=== PATIENT | female | born 1990 | race Caucasian/White ===

== ENCOUNTER → 2023-05-18 12:35 | Outpatient (BNVA) | payer MEDICAID, SELFPAY | PROVIDERS: Family Provider Specialist; PCP Nurse Practitioner Family; Referring Provider Nurse Practitioner Primary Care; Visit Provider Specialist | DX: G56.02 Carpal tunnel syndrome, left upper limb (principal) | CPT/HCPCS: 95910 ==

== ENCOUNTER 2025-02-02 17:40 | Emergency (ER) | payer SELFPAY ==
[2025-02-02 17:49] VITALS: BP 159/85; PULSE 74; RESP 16; TEMP 36.9; O2SAT 99; BMI 40.2
[2025-02-02 18:12] VITALS: PULSE 85; RESP 16; O2SAT 98
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
[2025-02-02 21:27] VITALS: BP 152/77; PULSE 68; O2SAT 100
== END 2025-02-02 21:27 | disposition home or self-care (01) ==
PROVIDERS: Emergency Provider Registered Nurse
DX: S09.93XA Unspecified injury of face, initial encounter (principal); Y04.8XXA Assault by other bodily force, initial encounter
CPT/HCPCS: 70450; 70486; 72125; 99284

== ENCOUNTER 2025-06-12 23:46 | Emergency (ER) | payer MEDICAID, SELFPAY ==
--- OUTSIDE RECORDS SUMMARY | 2025-06-12 23:50 | XMS_ITS | Encounter Summary ---
Author Organization [facility] Address [address] [place] [address] Care Team Providers Care Product Safety Test Engineer Name Role Phone Osiel Gonzalez Primary Care Provider [phone]- [phone] Encounter Details Date Type Department Care Team (Latest Contact Info) Description [facility] [address] [address] Acute pharyngitis (Primary Dx); Unspecified suppurative otitis media Social History Tobacco Use Types Packs/Day Years Used Date Smoking Tobacco: Never Assessed Comments Unknown Sex and Gender Information Value Date Recorded Sex Assigned at Not on file 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 Gender Identity Not on file Sexual Orientation Not on file documented as of this encounter Plan of Treatment Not on file documented as of this encounter Visit Diagnoses Diagnosis Acute pharyngitis- Primary Unspecified suppurative otitis media documented in this encounter Additional Health Concerns Infection Onset Date Last Indicated Resolved Time MRSA Comment:Thumb 05/25/13 05/27/2013 05/27/2013 documented as of this encounter Care Teams Product Safety Test Engineer Relationship Specialty Start Date End Date Osiel Gonzalez FNP PCP - General NURSE PRACTITIONER 12/28/16 documented as of this encounter
--- OUTSIDE RECORDS SUMMARY | 2025-06-12 23:50 | XMS_ITS | Clinical Summary ---
Author Organization [facility] Address [address] [place] [address] Care Team Providers Care Contour Path Tape Mill Operator Name Role Phone Osiel Gonzalez METAL BONDING ASSEMBLER Primary Care Provider [phone]- [phone] Allergies Active Allergy Reactions Criticality Noted Date Comments Ciprofloxacin Rash Low 10/18/2013 Medications gabapentin (NEURONTIN) 300 mg Oral capsule Take 300 mg by mouth 3 times daily. Active naproxen (NAPROSYN) 500 mg tablet Take 1 Tablet (500 mg) by mouth 2 times daily as needed for Pain, Moderate. 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 Gender Identity Not on file Sexual Orientation Not on file Occupation Industry Job Start Date Job End Date Not on file Not on file Not on file Not on file Last Filed Vital Signs Vital Sign Reading Time Taken Comments Blood Pressure 120/74 04/01/2020 3:56 PM CDT Pulse 90 12/08/2019 6:45 AM CDT Temperature 36.7 C (98 F) 04/01/2020 1:21 PM CDT Respiratory Rate 17 04/01/2020 3:56 PM CDT Oxygen Saturation 98% 04/01/2020 3:56 PM CDT Inhaled Oxygen Concentration - - Weight 77.1 kg (170 lb) 04/01/2020 1:21 PM CDT Height 157.5 cm (5' 2 ) 04/01/2020 1:21 PM CDT Body Mass Index 31.09 04/01/2020 1:21 PM CDT Plan of Treatment Health Maintenance Due Date Last Done Comments DTAP/TDAP/TD VACCINES (1 - Tdap) 2008 HEPATITIS B VACCINES (1 of 3 - 19+ 3-dose series) 06/05 HPV/Cotest (21-29) 2010 HPV VACCINES (1 - 3-dose SCDM series) 2016 CERVICAL CANCER SCREENING 2019 HPV/Cotest (30-65) 2019 PAP SMEAR 2019 INFLUENZA VACCINE (#1) 2025 Additional Health Concerns Infection Onset Date Last Indicated MRSA Comment:Thumb 05/25/13 05/27/2013 05/27/2013 Insurance MEDICAID [place] Care Teams Contour Path Tape Mill Operator Relationship Specialty Start Date End Date Osiel Gonzalez FNP PCP - General NURSE PRACTITIONER 12/28/16
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
--- OUTSIDE RECORDS SUMMARY | 2025-06-12 23:50 | XMS_ITS | Encounter Summary ---
Author Organization [facility] Address [address] [place] [address] Care Team Providers Care Insole Taper Name Role Phone Osiel Gonzalez Primary Care Provider [phone] Reason for Referral * Outpatient Services (Routine) - Closed Specialty Diagnoses / Procedures Referred By Anahi del rio Referred To Contact Diagnoses Shortness of breath Procedures ECHO COMPLETE Osiel Gonzalez FNP Phone: tel: fax: [facility] Pre-Registration [place] CALL TO MAKE APPOINTMENT ONLY [address] [place] [address] Phone: tel: fax: Referral ID Status Reason Start Date Expiration Date V isits Requested Visits Authorized [id number] Closed F [facility] TO SCHEDULE (SGF) 11/25/2016 12/26/2017 1 1 Encounter Details Date Type Department Care Team (Latest Contact Info) Description 11/25/2016 Ancillary Orders [facility] Pre-Registration [place] CALL TO MAKE APPOINTMENT ONLY [address] [place] [address] Osiel Gonzalez FNP [address] [place] [address] Shortness of breath Social History Tobacco Use Types Packs/Day Years Used Date Smoking Tobacco: Never Alcohol Use Standard Drinks/Week Comments No 0 (1 standard drink = 0.6 oz pur e alcohol) Comments No Sex and Gender Information Value Date Recorded Sex Assigned at Not on file Legal Sex Female 2:42 AM [employer] Gender Identity Not on file Sexual Orientation Not on file Occupation Industry Job Start Date Job End Date Not on file Not on file Not on file Not on file documented as of this encounter Plan of Treatment Not on file documented as of this encounter Results * ECHO COMPLETE (01/04/2017 8:28 AM CDT) EJECTION FRACTION 64 INTERFACE SYSTEM 01/04/2017 7:36 AM CDT Narrative INTERFACE SYSTEM - 01/04/2017 8:58 AM CDT [facility] [address] Transthoracic Echocardiography Patient: Harjit Study ECHO Kely Stockton ID: COMPLETE Gender: F : 1990 Age: 26 Room: Study 01/04/2017 Pt Outpatient Date: Status: Study 07:36 AM CSN #: [id number] Time: Ordering:Osiel Gonzalez Interpreting:Vin Umana MD Farm Supervisor: Christiana Fonseca [facility] Indications and History: Shortness of breath [R06.02 (ICD-10-CM)]. Risk factors: Current tobacco use. Summary and Conclusion: - Left ventricle: The cavity size was normal. Wall thickness was normal. Systolic function was normal. The left ventricular ejection fraction was 64%, by biplane method of disks. The visually estimated ejection fraction was in the range of 60% to 65%. No diagnostic regional wall motion abnormality identified. Left ventricular diastolic function parameters were normal. - Right ventricle: The cavity size was normal. Systolic function was normal. Systolic pressure was within the normal range. Impressions: Normal echo with Dopplers. Procedure information: No prior study was available for comparison. Study status: Routine. Procedure: Transthoracic echocardiography. Image quality was fair. Scanning was performed from the parasternal, apical, subcostal, and suprasternal notch acoustic windows. Study components: M-mode, 2D, complete spectral Doppler, and color Doppler. Height: Height: 157.5cm. Height: 62in. Weight: Weight: 90.7kg. Weight: 200lb. Body mass index: BMI: 36.6kg/m\S\2. Body surface area: BSA: 2.04m\S\2. Patient status: Outpatient. Study date: Study date: January 04, 2017. Location: Echo laboratory. Cardiac Anatomy: LEFT VENTRICLE: The cavity size was normal. Wall thickness was normal. Systolic function was normal. The left ventricular ejection fraction was 64%, by biplane method of disks. The visually estimated ejection fraction was in the range of 60% to 65%. No diagnostic regional wall motion abnormality identified. Left ventricular diastolic function parameters were normal. RIGHT VENTRICLE: The cavity size was normal. Systolic function was normal. Systolic pressure was within the normal range. LEFT ATRIUM: The atrium was normal in size. RIGHT ATRIUM: The atrium was normal in size. ATRIAL SEPTUM: No obvious PFO or ASD identified by 2D imaging and color Doppler. AORTIC VALVE: Trileaflet; normal thickness leaflets. Mobility was not restricted. Doppler: There was no stenosis. No significant regurgitation. Peak velocity ratio of LVOT to aortic valve: 0.84. Peak gradient: 7mm Hg (S). MITRAL VALVE: Structurally normal valve. Mobility was not restricted. No echocardiographic evidence for prolapse. Doppler: There was no evidence for stenosis. No significant regurgitation. Valve area: 3.87cm\S\2. Indexed valve area: 1.9cm\S\2/m\S\2. Valve area by pressure half-time: 3.87cm\S\2. Indexed valve area by pressure half-time: 1.9cm\S\2/m\S\2. Peak gradient: 4mm Hg (D). TRICUSPID VALVE: Structurally normal valve. Mobility was not restricted. Doppler: There was no evidence for stenosis. No significant regurgitation. PULMONIC VALVE: Not well visualized. The valve appears to be grossly normal. Doppler: There was no evidence for stenosis. No significant regurgitation. PERICARDIUM: There was no pericardial effusion. AORTA: Aortic root: The aortic root was normal in size. Aortic arch: The aortic arch was normal in size. PULMONARY ARTERY: Systolic pressure could not be accurately estimated. SYSTEMIC VEINS: Inferior vena cava: The vessel was normal in size. INTRACARDIAC MASS THROMBUS: No apparent intracavitary masses or thrombi detected. 2D measurements Adult Normal Range Left ventricle FS, chord, PLAX 39 % >29 LVID ED, max, PLAX 46.25 mm 36-54 LVID ES, max, PLAX 28.31 mm 23-40 FS, max, PLAX 39 % >29 LVPW, ED, PLAX 8.9 mm IVS/LVPW ratio, ED, PLAX 0.66 <1.3 Vol ED, MOD1 85.1 ml Vol ES, MOD1 33 ml Stroke vol, MOD1 52.1 ml Vol index, ED, MOD1 42 ml/m\S\2 Vol index, ES, MOD1 16 ml/m\S\2 Stroke index, MOD1 25.6 ml/m\S\2 Vol ED, MOD2 96.2 ml 55-101 Vol ES, MOD2 35.8 ml EF, MOD2 63.65 % Stroke vol, MOD2 63.9 ml Vol index, ED, MOD2 47 ml/m\S\2 Vol index, ES, MOD2 18 ml/m\S\2 Stroke index, MOD2 31.4 ml/m\S\2 Ventricular septum IVS, ED, PLAX 5.9 mm Aorta Root diam, ED 25.75 mm AAo AP diam, S 25.76 mm Left atrium AP dim 28.79 mm AP dim index 1.41 cm/m\S\2 <2.2 AP dim ES, PLAX 28.79 mm 23-38 SI dim, A4C 44.32 mm 29-53 Vol, S 20.4 ml Vol index, S 10 ml/m\S\2 Right atrium SI dim, ES, A4C 38.13 mm 34-49 Right ventricle RVID ED, PLAX 23.11 mm 19-38 Doppler measurements Adult Normal Range Left ventricle IVRT 99 ms 60-100 Ea, lat ren, tiss DP 16 cm/s E/Ea, lat ren, tiss DP 5.96 Ea, med ren, tiss DP 16 cm/s E/Ea, med ren, tiss DP 6.1 LVOT Peak zach, S 111.83 cm/s Peak gradient, S 5 mm Hg Aortic valve Peak zach, S 133.22 cm/s Peak gradient, S 7 mm Hg Peak zach ratio, LVOT/AV 0.84 Mitral valve Peak E zach 95.33 cm/s Peak A zach 52.56 cm/s Deceleration time 196 ms 150-230 Pressure half-time 57 ms Peak gradient, D 4 mm Hg Peak E/A ratio 1.81 Area 3.87 cm\S\2 Area index 1.9 cm\S\2/m\S\2 Area (PHT) 3.87 cm\S\2 Area index (PHT) 1.9 cm\S\2/m\S\2 Legend: Mean values are shown as u=mean value. Asterisk (*) hobbs values outside specified normal range. [facility] are accredited with the Intersocietal Accreditation Commission - Echocardiography. Prepared and Electronically Authenticated Vin Umana MD Confirmed 01/04/2017 08:58 Procedure Note Vin Umana MD - 01/04/2017 [facility] [address] [facility] [address] [place] [address] Transthoracic Echocardiography Patient: Harjit Study ECHO Kely I ID: COMPLETE Gender: F : 1990 Age: 26 Room: Study 01/04/2017 Pt Outpatient Date: Status: Study 07:36 AM [facility] #: [id number] Time: Ordering:Osiel Gonzalez Interpreting:Vin Umana MD Farm Supervisor: Christiana Fonseca [facility] Indications and History: Shortness of breath [R06.02 (ICD-10-CM)]. Risk factors: Current tobacco use. Summary and Conclusion: - Left ventricle: The cavity size was normal. Wall thickness was normal. Systolic function was normal. The left ventricular ejection fraction was 64%, by biplane method of disks. The visually estimated ejection fraction was in the range of 60% to 65%. No diagnostic regional wall motion abnormality identified. Left ventricular diastolic function parameters were normal. - Right ventricle: The cavity size was normal. Systolic function was normal. Systolic pressure was within the normal range. Impressions: Normal echo with Dopplers. Procedure information: No prior study was available for comparison. Study status: Routine. Procedure: Transthoracic echocardiography. Image quality was fair. Scanning was performed from the parasternal, apical, subcostal, and suprasternal notch acoustic windows. Study components: M-mode, 2D, complete spectral Doppler, and color Doppler. Height: Height: 157.5cm. Height: 62in. Weight: Weight: 90.7kg. Weight: 200lb. Body mass index: BMI: 36.6kg/m\S\2. Body surface area: BSA: 2.04m\S\2. Patient status: Outpatient. Study date: Study date: January 04, 2017. Location: Echo laboratory. Cardiac Anatomy: LEFT VENTRICLE: The cavity size was normal. Wall thickness was normal. Systolic function was normal. The left ventricular ejection fraction was 64%, by biplane method of disks. The visually estimated ejection fraction was in the range of 60% to 65%. No diagnostic regional wall motion abnormality identified. Left ventricular diastolic function parameters were normal. RIGHT VENTRICLE: The cavity size was normal. Systolic function was normal. Systolic pressure was within the normal range. LEFT ATRIUM: The atrium was normal in size. RIGHT ATRIUM: The atrium was normal in size. ATRIAL SEPTUM: No obvious PFO or ASD identified by 2D imaging and color Doppler. AORTIC VALVE: Trileaflet; normal thickness leaflets. Mobility was not restricted. Doppler: There was no stenosis. No significant regurgitation. Peak velocity ratio of LVOT to aortic valve: 0.84. Peak gradient: 7mm Hg (S). MITRAL VALVE: Structurally normal valve. Mobility was not restricted. No echocardiographic evidence for prolapse. Doppler: There was no evidence for stenosis. No significant regurgitation. Valve area: 3.87cm\S\2. Indexed valve area: 1.9cm\S\2/m\S\2. Valve area by pressure half-time: 3.87cm\S\2. Indexed valve area by pressure half-time: 1.9cm\S\2/m\S\2. Peak gradient: 4mm Hg (D). TRICUSPID VALVE: Structurally normal valve. Mobility was not restricted. Doppler: There was no evidence for stenosis. No significant regurgitation. PULMONIC VALVE: Not well visualized. The valve appears to be grossly normal. Doppler: There was no evidence for stenosis. No significant regurgitation. PERICARDIUM: There was no pericardial effusion. AORTA: Aortic root: The aortic root was normal in size. Aortic arch: The aortic arch was normal in size. PULMONARY ARTERY: Systolic pressure could not be accurately estimated. SYSTEMIC VEINS: Inferior vena cava: The vessel was normal in size. INTRACARDIAC MASS THROMBUS: No apparent intracavitary masses or thrombi detected. 2D measurements Adult Normal Range Left ventricle FS, chord, PLAX 39 % >29 LVID ED, max, PLAX 46.25 mm 36-54 LVID ES, max, PLAX 28.31 mm 23-40 FS, max, PLAX 39 % >29 LVPW, ED, PLAX 8.9 mm IVS/LVPW ratio, ED, PLAX 0.66 <1.3 Vol ED, MOD1 85.1 ml Vol ES, MOD1 33 ml Stroke vol, MOD1 52.1 ml Vol index, ED, MOD1 42 ml/m\S\2 Vol index, ES, MOD1 16 ml/m\S\2 Stroke index, MOD1 25.6 ml/m\S\2 Vol ED, MOD2 96.2 ml 55-101 Vol ES, MOD2 35.8 ml EF, MOD2 63.65 % Stroke vol, MOD2 63.9 ml Vol index, ED, MOD2 47 ml/m\S\2 Vol index, ES, MOD2 18 ml/m\S\2 Stroke index, MOD2 31.4 ml/m\S\2 Ventricular septum IVS, ED, PLAX 5.9 mm Aorta Root diam, ED 25.75 mm AAo AP diam, S 25.76 mm Left atrium AP dim 28.79 mm AP dim index 1.41 cm/m\S\2 <2.2 AP dim ES, PLAX 28.79 mm 23-38 SI dim, A4C 44.32 mm 29-53 Vol, S 20.4 ml Vol index, S 10 ml/m\S\2 Right atrium SI dim, ES, A4C 38.13 mm 34-49 Right ventricle RVID ED, PLAX 23.11 mm 19-38 Doppler measurements Adult Normal Range Left ventricle IVRT 99 ms 60-100 Ea, lat ren, tiss DP 16 cm/s E/Ea, lat ren, tiss DP 5.96 Ea, med ren, tiss DP 16 cm/s E/Ea, med ren, tiss DP 6.1 LVOT Peak zach, S 111.83 cm/s Peak gradient, S 5 mm Hg Aortic valve Peak zach, S 133.22 cm/s Peak gradient, S 7 mm Hg Peak zach ratio, LVOT/AV 0.84 Mitral valve Peak E zach 95.33 cm/s Peak A zach 52.56 cm/s Deceleration time 196 ms 150-230 Pressure half-time 57 ms Peak gradient, D 4 mm Hg Peak E/A ratio 1.81 Area 3.87 cm\S\2 Area index 1.9 cm\S\2/m\S\2 Area (PHT) 3.87 cm\S\2 Area index (PHT) 1.9 cm\S\2/m\S\2 Legend: Mean values are shown as u=mean value. Asterisk (*) hobbs values outside specified normal range. [facility] are accredited with the Intersocietal Accreditation Commission - Echocardiography. Prepared and Electronically Authenticated Vin Umana MD Confirmed 01/04/2017 08:58 us Osiel NICHOLSP US ORDERABLES Final Resu lt INTERFACE SYSTEM Refer to clinic/hospital department documented in this encounter Visit Diagnoses Diagnosis Shortness of breath Shortness of breath documented in this encounter Additional Health Concerns Infection Onset Date Last Indicated Resolved Time MRSA Comment:Neelam 05/25/13 05/27/2013 05/27/2013 documented as of this encounter Care Teams Insole Taper Relationship Specialty Start Date End Date Osiel Gonzalez FNP PCP - General NURSE PRACTITIONER 12/28/16 documented as of this encounter
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
[2025-06-12 23:58] VITALS: BP 145/100; PULSE 78; RESP 18; O2SAT 97
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
[2025-06-13 01:23] LABS: PCP Screen Urine Negative (Negative)
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
[2025-06-13 02:21] LABS: Trichomonas vaginalis (PCR) NOT DETECTED (Negative)
[2025-06-13 02:44] LABS: Neisseria Gonorrhea NOT DETECTED (Negative)
== END 2025-06-13 02:41 | disposition home or self-care (01) ==
PROVIDERS: Emergency Medicine; Emergency Provider Student in an Organized Health Care Education/Training Program; PCP Nurse Anesthetist, Certified Registered
DX: R51.9 Headache, unspecified (principal); M54.2 Cervicalgia; T76.21XA Adult sexual abuse, suspected, initial encounter; X58.XXXA Exposure to other specified factors, initial encounter
CPT/HCPCS: 70450; 71045; 72125; 80306; 87491; 87591; 87661; 96372; 99284; E0352; J1885